=== PATIENT | male | born 2000 | race Caucasian/White ===

== ENCOUNTER 2023-10-06 06:43 | Emergency (ER) | payer BC, OTHER ==
[~2023-10-06] VITALS: Ht 175.3 cm; Wt 63.5 kg
[2023-10-06 06:52] VITALS: BP 128/57; TEMP 98.2; O2SAT 98
[2023-10-06] MEDS ORDERED: NEOM10DR11 RIGHT EAR (06:59)
== END 2023-10-06 07:04 | disposition home or self-care (01) ==
LOC: ER 06:48
DX: H60.91 Unspecified otitis externa, right ear (principal); H61.23 Impacted cerumen, bilateral; F31.9 Bipolar disorder, unspecified